=== PATIENT | male | born 1930 | race Caucasian/White ===

== ENCOUNTER 2019-11-12 12:55 | Day surgery (SDC) | payer MEDICARE, BC ==
--- NOTE | 2019-11-12 08:03 | History and Physical - Ferro ---
CHIEF COMPLAINT/HISTORY OF CHIEF COMPLAINT: This patient presents with a history of intractable lumbar radiculopathy. Diagnostic studies show multiple level lumbar spinal stenosis including L3-L4, L4-L5, and L5-S1. This by way of standard x-rays, and CT study. Treatment history includes physical therapy, biomechanical treatments, and pain clinic treatments without success. PAST MEDICAL HISTORY: Hypertension, peripheral edema, pacemaker, cardiac disease and degenerative arthritis. PAST SURGICAL HISTORY: Pacemaker. MEDICATIONS ON ADMISSION: List to be provided. No blood thinners. ALLERGIES: None. FAMILY/PSYCHOSOCIAL HISTORY: Social history - Noncontributory. Family history - Thyroid disease, diabetes, coronary artery disease, and hypertension. SYSTEMS REVIEW: The patient is appropriate in no acute distress. PHYSICAL EXAMINATION: Height is 5'7", weight is 180. No vital signs. HEENT: Within normal limits. LUNGS: Clear. HEART: Rapid and regular. ABDOMEN: Nontender. MUSCULOSKELETAL: Examination of the musculoskeletal system shows diffuse tenderness throughout the lumbar spine. Range of motion does produce pain to the low back and into the lower extremities. Ambulation produces pain into the back and legs. Sitting and forward bending reduces, eliminates and controls pain. Ambulation - No assistive device utilized. NEUROLOGIC: Cranial nerves are intact. IMPRESSION: MULTIPLE LEVEL LUMBAR SPINAL STENOSIS WITH NEUROGENIC INTERMITTENT CLAUDICATION, ICD-10 CODE M48.062. PLAN: Due to the symptom pattern consistent with spinal stenosis and LISA, he is here for interspinal spacer placement at L3-L4 and L4-L5. He understands he has extensive arthritic change as well as spinal stenosis at L5-S1. No spacer placement is possible at L5-S1. He understands that there will still be an area that is untreated. Overall we expect some degree of relief and would like to think that the primary level at L4-L5 will help decompress the major nerve root system into his legs. He understands the six week restrictions. The risks, side effects and complications have been reviewed and discussed. He was put in contact with a clinical specialist who has answered his questions. JOB NUMBER: [id number] [facility]
[~2019-11-12 12:55] MED LIST: ACETAMINOPHEN 1,000 MG/100 ML BTL IVPB ONE; CEFAZOLIN 2 Gram 2 GM/50 ML BAG IVPB ONE; FAMOTIDINE 20MG TABLET PO ONE; MECLIZINE 25 MG TABLET PO ONE; METOCLOPRAMIDE 10 MG TABLET PO ONE
[2019-11-12] MEDS ORDERED: FENTANYL PF 100MCG/2ML VIAL IV ONE (12:56)
[2019-11-12] MEDS ORDERED: LIDOCAINE 2% MDV (20MG/ML) 20ML VIAL IV ONE (12:56)
[2019-11-12] MEDS ORDERED: MIDAZOLAM HCL 2MG/2ML VIAL IV ONE (12:56)
[2019-11-12] MEDS ORDERED: PROPOFOL 10 MG/ML VIAL IV ONE (12:56)
[2019-11-12] MEDS ORDERED: EPHEDRINE SULFATE 50 MG/ML ML IV ONE (12:56)
[2019-11-12] MEDS ORDERED: 0.9 % SODIUM CHLORIDE 1000ML 1,000 ML IV ONE (13:35)
[2019-11-12] MEDS ORDERED: RINGERS SOLUTION,LACTATED 1,000 ML IV ONE (13:35)
[2019-11-12] MEDS ORDERED: LIDOCAINE 1% MPF 100MG/10ML STERILE-PAK AMPULE SQ ONE (16:59)
[2019-11-12] MEDS ORDERED: BUPIVACAINE 0.5% (5MG/ML) PF 30ML VIAL SQ ONE (16:59)
[2019-11-12] MEDS ORDERED: CEFAZOLIN 1G VIAL IR ONE (16:59)
--- NOTE | 2019-11-13 15:12 | Operative Note - [facility] ---
DATE OF SURGERY: 11/12/2019 PREOPERATIVE DIAGNOSIS: LUMBAR SPONDYLOSIS WITH NEUROGENIC INTERMITTENT CLAUDICATION, ICD-10 CODE M48.062. OPERATION: 1. FLUOROSCOPICALLY GUIDED PLACEMENT OF INTERSPINAL SPACER AT L3-L4. 2. FLUOROSCOPICALLY GUIDED PLACEMENT OF INTERSPINAL SPACER PLACEMENT AT L4-L5. SURGEON: Alex Acevedo D.O. ANESTHESIA: Local sedation. ANESTHESIA PROVIDER: Rusty Bardales CRNA INDICATION: This patient presents with history of multiple level lumbar spinal stenosis and leg pain. The pain characterized by increase of activity reduced by sitting or forward bending. Due to the 10-15 year history of conservative therapies which have been unsuccessful, a previous surgical evaluation recommending no surgery and pain clinical treatments without success. Due to failure of all of his therapies, he is here for interspinal spacer placement to determine the extent to which these devices can assist in his pain control. PROCEDURE: Intravenous line, vital sign monitoring, IV sedation, prepped, draped, sterile technique. The patient was positioned prone with mild flexion. A sterile prep, sterile technique. Under imaging the spinal interspace at L4-L5 was marked, infiltrated with local, a 22-gauge needle was placed in between the spinous process consisting of mainly posteriorly lamina. AP and lateral imaging used. A dilator was placed between the spinous process of L4 and L5, positioned on a lateral image posterior to the lamina. A second dilator was then inserted over the first to distract the spinous processes of L4 and L5. AP and lateral imaging was used to confirm position. The inner dilator was removed and a debrider was then placed to debride the interspinous ligament staying posterior to the lamina. A gauge was used to determine the distance between the spinous processes which are identified at 10 mm. A 10 mm spinal spacer was then inserted under AP and lateral imaging opened to distract the spinous processes of L4 and L5, appropriate position of the posterior lamina confirmed. The instruments were removed. At L3-L4 the skin was infiltrated using AP and lateral imaging, a dilator was placed between the spinous processes of L3 and L4 staying posterior to the lamina. A second dilator was then inserted to distract the spinous process assisting the posterior lamina. The introducer was removed and a debrider was used to debride the interspinous ligament posterior to the lamina. A measuring gauge was then inserted to determine the distance between the spinous processes determined at 10 mm. A 10 mm interspinal process spacer was then inserted and then expanded under imaging distracting the spinous process of L3 and L4. AP and lateral imaging was used to confirm position of the posterior lamina. All of the instrumentation was removed. AP and lateral imaging was used to confirm position. Antibiotic irrigation was used. The incisions were closed using 2-0 Vicryl for fascia and a running nylon interrupted nylon for skin at both sites. A sterile dressing was applied. He was transported to the Recovery Room stable. No unusual pain patterns. Full functionality of the extremities. He was monitored until stable and then discharged. DISCHARGE INSTRUCTIONS: 1. The site is to remain clean and dry. No showering or bathing in any way that would get the dressings wet. He can shower if he can keep the dressings dry. 2. Standard medications resumed including the antibiotic Levaquin 500 mg once a day for fourteen days. 3. He has been given a script for pain medications should he need it to manage the incisional pain, Dell. Office to contact the patient in the next 24 hours to set up a time in the next 7-10 days for us to evaluate the sites and remove the suture, until then he is to limit bend, lift, push and pull and all activities. All other instructions were provided. Numbers to contact if problems given. He was then discharged. JOB NUMBER: [id number] [facility]
--- NOTE | 2019-11-14 10:38 | RADIOLOGY REPORT ---
EXAMINATION: Lumbar Spine Single View EXAM DATE: 11/13/2019 1:30 PM TECHNIQUE: AP view INDICATION: S/P VERTIFLEX IMPLANT 12/30 AND 01/31 COMPARISON: None available ENCOUNTER: Initial IMPRESSION: Fusion hardware is visible at L3-L4 and L4-L5. No evidence of acute fracture on this single image. Dictated by: Marion Smith DO on 11/14/2019 10:35 AM. .
== END 2019-11-12 18:39 | disposition home or self-care (01) ==
LOC: SUR 12:55
PROVIDERS: ATTEND Pain Medicine Interventional Pain Medicine
DX: M48.062 Spinal stenosis, lumbar region with neurogenic claudication (principal); I10 Essential (primary) hypertension; E78.00 Pure hypercholesterolemia, unspecified; G62.9 Polyneuropathy, unspecified; K21.9 Gastro-esophageal reflux disease without esophagitis; I50.9 Heart failure, unspecified; I48.91 Unspecified atrial fibrillation; E03.9 Hypothyroidism, unspecified; Z95.0 Presence of cardiac pacemaker
CPT/HCPCS: 22869; 22870; 00630; 72020; C1821; J3010; J0690; J3490; J7030; J7120